=== PATIENT | female | born 2000 | race Caucasian/White ===

== ENCOUNTER 2021-10-17 23:32 | Emergency (ER) | payer OTHER ==
[2021-10-18 00:30] LABS: HEMOGLOBIN 10.4 gm/dl (12.3-15.3); RED BLOOD COUNT 4.56 M/UL (4.00-5.10); WHITE BLOOD COUNT 14.8 K/UL (4.5-11.0)
[2021-10-18 00:54] LABS: BUN/CREATININE RATIO 9 (0-10)
[2021-10-18] MEDS ORDERED: IBU600 MG PO (05:17)
[2021-10-18] MEDS ORDERED: BENTYL 10MG CAP10 MG PO (05:17)
[2021-10-18] MEDS ORDERED: BACTRIM DS TAB1 EACH PO (05:17)
== END 2021-10-18 05:45 | disposition home or self-care (01) ==
LOC: ER1 23:32
PROVIDERS: Student in an Organized Health Care Education/Training Program
DX: N30.90 Cystitis, unspecified without hematuria (principal); J45.909 Unspecified asthma, uncomplicated; Z88.8 Allergy status to other drugs, medicaments and biological substances; Z20.822 Contact with and (suspected) exposure to COVID-19
CPT/HCPCS: 80053; 81001; 83690; 84703; 85025; 96374; 99284; J1885; Q9967; U0002